=== PATIENT | male | born 1955 | race Caucasian/White ===

== ENCOUNTER 2017-11-23 12:28 | Inpatient (IN) | payer MEDICARE, MEDICAID ==
[~2017-11-23] VITALS: Ht 188 cm; Wt 100.4 kg
[~2017-11-23 12:28] MED LIST: ALBU18; AMIODARONE PO; FLOW VENT; FURO40TA PO; HYDROCHLORATHIAZIDE PO; INSLANTI SC; INSUINJ IJ; LISI10TA6 PO; METF-370 PO; METO25TA5 PO; NITR0.4S31; PLAVIX PO; SIMV40TA96 PO; [UNRECOGNIZED DRUG - CODE] PO
[2017-11-23 13:50] LABS: Basophils # (auto) 0.1 uL; Eosinophils # (auto) 0.2 uL; Hematocrit 24.4 % (41.0-53.0); Monocytes # (auto) 0.6 uL; Neutrophils # (auto) 3.1 uL; Nucleated Red Blood Cells % 0.3 %
[2017-11-23 13:52] LABS: Basophils % (auto) 1.1 % (0.0-2.0); Eosinophils % (auto) 3.3 % (0.0-7.0); Hemoglobin 7.1 g/dL (13.5-17.5); Lymphocytes % (auto) 20.7 % (10.0-50.0); Mean Corpuscular Hemoglobin 23.1 pg (28.0-32.0); Mean Corpuscular Hgb Conc. 29.3 g/dL (32.0-36.0); Mean Corpuscular Volume 78.9 fL (80.0-100.0); Neutrophils % (auto) 62.9 % (37.0-80.0); Platelet Count (auto) 179 10^3/uL (140-450); Red Cell Distribution Width 19.6 % (11.8-14.3); White Blood Cell 4.9 10^3/uL (4.4-10.8)
[2017-11-23 14:25] LABS: Calcium 8.1 mg/dL (8.5-10.1); Chloride 105 mmol/L (98-107); Potassium 4.6 mmol/L (3.5-5.1); Sodium 136 mmol/L (136-145)
[2017-11-23 14:28] LABS: Alanine Aminotransferase 23 U/L (16-61); Anion Gap 8 (5-15); Aspartate Aminotransferase 14 U/L (15-37); BUN/Creatinine Ratio 35.4; Blood Urea Nitrogen 28 mg/dL (7-18); Carbon Dioxide 23 mmol/L (21-32); GFR African American 128 mL/min; GFR Non-African American 106 mL/min; Glucose 174 mg/dL (74-106)
[2017-11-23 14:33] LABS: Alkaline Phosphatase 78 U/L (45-117); Bilirubin, Total 0.2 mg/dL (0.2-1.0); Total Protein 6.1 g/dL (6.4-8.2)
[2017-11-23] MEDS ORDERED: MORPHINE SULF INJ 2 MG/ML SYRINGE 1ML IV PRN (15:00)
[2017-11-23] MEDS ORDERED: HYDROcodone-ACET 10/325MG TAB PO PRN (15:00)
[2017-11-23] MEDS ORDERED: ZOLPIDEM TARTRATE 5 MG TAB PO PRN (15:00)
[2017-11-23] MEDS ORDERED: NITROGLYCERIN 0.4 MG SL TAB SL PRN ×2 (15:00)
[2017-11-23] MEDS ORDERED: ONDANSETRON HCL 4 MG/2 ML VIAL IV PRN (15:00)
[2017-11-23] MEDS ORDERED: MORPHINE SULFATE 10 MG/ML INJ 1ML SDV IV PRN (15:00)
[2017-11-23] MEDS ORDERED: PANTOPRAZOLE 40 MG TAB PO ONE (15:00)
[2017-11-23] MEDS ORDERED: LORazepam 0.5 MG TAB PO PRN (15:00)
[2017-11-23] MEDS ORDERED: MORPHINE SULFATE 10 MG/ML INJ 1ML SDV IV ONE (15:00)
[2017-11-23] MEDS ORDERED: ONDANSETRON HCL 4 MG/2 ML VIAL IV ONE (15:00)
[2017-11-23] MEDS ORDERED: ACETAMINOPHEN 325 MG TAB PO PRN (15:00)
[2017-11-23] MEDS: HYDROmorphone HCL 2 MG/ML VL IV PRN (17:25)
[2017-11-23] MEDS: Boost Glucose Control 8 Ounces PO SCH (18:06)
[2017-11-23 20:00] VITALS: BP 108/72
[2017-11-23] MEDS ORDERED: HYDROmorphone HCL 2 MG/ML VL IV ONE (21:45)
[2017-11-23 21:55] LABS: Hematocrit 21.1 % (41.0-53.0)
[2017-11-23] MEDS: ATORVASTATIN 20 MG TAB PO SCH ×2 (22:00→22:05)
[2017-11-23] MEDS: SODIUM CHLOR 0.9% PF (SALINE LOCK) 10ML VIAL IV SCH (22:03)
[2017-11-23] MEDS: CARVEDILOL 3.125 MG TAB PO SCH (22:04)
[2017-11-23 22:08] LABS: Hemoglobin 6.4 g/dL (13.5-17.5); INR 0.96 (0.9-1.15); Prothrombin Time 10.5 sec (9.37-12.3)
[2017-11-23 23:05] VITALS: BP 105/70
[2017-11-23 23:17] VITALS: BP_SYST 108; BP_SYST 137; BP_DIAS 72
[2017-11-23 23:35] VITALS: BP 136/68
[2017-11-24] VITALS (12 sets, daily range): BP systolic 103–137; BP diastolic 38–82
[2017-11-24] MEDS: traMADol HCL 50 MG TAB PO PRN (01:30)
[2017-11-24] MEDS: HYDROmorphone HCL 2 MG/ML VL IV PRN ×2 (02:18→06:22)
[2017-11-24] MEDS: SODIUM CHLOR 0.9% PF (SALINE LOCK) 10ML VIAL IV SCH ×3 (05:55→20:23)
[2017-11-24 06:23] LABS: Eosinophils # (auto) 0.2 uL; Neutrophils # (auto) 3.6 uL
[2017-11-24] MEDS: LEVOTHYROXINE SODIUM 100 MCG TAB PO SCH (06:25)
[2017-11-24 06:26] LABS: Basophils # (auto) 0.1 uL; Eosinophils % (auto) 3.5 % (0.0-7.0); Hematocrit 20.6 % (41.0-53.0); Lymphocytes # (auto) 0.7 uL; Lymphocytes % (auto) 13.9 % (10.0-50.0); Mean Corpuscular Hemoglobin 24.6 pg (28.0-32.0); Mean Corpuscular Hgb Conc. 30.8 g/dL (32.0-36.0); Mean Corpuscular Volume 79.7 fL (80.0-100.0); Monocytes # (auto) 0.8 uL; Monocytes % (auto) 14.3 % (0.0-12.0); Neutrophils % (auto) 67.3 % (37.0-80.0); Nucleated Red Blood Cells % 0.1 %; Platelet Count (auto) 121 10^3/uL (140-450); Red Blood Cells 2.58 10^6/uL (4.5-5.90); Red Cell Distribution Width 18.8 % (11.8-14.3); White Blood Cell 5.4 10^3/uL (4.4-10.8)
[2017-11-24 06:29] LABS: Hemoglobin 6.4 g/dL (13.5-17.5)
[2017-11-24 06:50] LABS: Albumin 2.7 g/dL (3.4-5.0); BUN/Creatinine Ratio 37.1; Bilirubin, Total 0.4 mg/dL (0.2-1.0); Calcium 7.3 mg/dL (8.5-10.1); Potassium 3.9 mmol/L (3.5-5.1); Total Protein 5.4 g/dL (6.4-8.2)
[2017-11-24] MEDS: Boost Glucose Control 8 Ounces PO SCH ×3 (08:00→18:00)
[2017-11-24] MEDS ORDERED: HYDROmorphone HCL 2 MG/ML VL IV ONE (08:45)
[2017-11-24] MEDS: HYDROcodone-ACET 10/325MG TAB PO PRN ×2 (09:43→20:38)
[2017-11-24] MEDS: MORPHINE SULFATE 10 MG/ML INJ 1ML SDV IV PRN ×5 (10:00→22:12)
[2017-11-24] MEDS ORDERED: PATIENTS OWN MEDICATION PO SCH (10:00)
[2017-11-24] MEDS: DOCUSATE SOD 100 MG CAP PO SCH (10:00)
[2017-11-24] MEDS: HCTZ 25 MG TAB PO SCH (10:01)
[2017-11-24] MEDS: AMIODARONE HCL 200 MG TAB PO SCH (10:01)
[2017-11-24] MEDS: PANTOPRAZOLE 40 MG TAB PO SCH (10:01)
[2017-11-24] MEDS: LISINOPRIL 10 MG TAB PO SCH (10:02)
[2017-11-24] MEDS: DULoxetine HCL 30 MG CAP PO SCH (10:02)
[2017-11-24] MEDS: CARVEDILOL 3.125 MG TAB PO SCH ×2 (10:03→20:24)
[2017-11-24] MEDS ORDERED: PANTOPRAZOLE 40 MG/10 ML VIAL IV ONE (19:45)
[2017-11-24] MEDS: PANTOPRAZOLE 80 MG in SODIUM CHL 0.9% 60 ML IV SCH (20:23)
[2017-11-24] MEDS: ATORVASTATIN 20 MG TAB PO SCH ×2 (20:39)
[2017-11-24 21:31] LABS: Basophils # (auto) 0 uL; Hemoglobin 7.8 g/dL (13.5-17.5); Mean Corpuscular Volume 81.8 fL (80.0-100.0); Monocytes # (auto) 0.7 uL; Monocytes % (auto) 17.6 % (0.0-12.0); Neutrophils # (auto) 1.9 uL; Platelet Count (auto) 116 10^3/uL (140-450); White Blood Cell 3.9 10^3/uL (4.4-10.8)
[2017-11-24 21:34] LABS: Basophils % (auto) 0.7 % (0.0-2.0); Eosinophils # (auto) 0.3 uL; Eosinophils % (auto) 6.7 % (0.0-7.0); Hematocrit 24.6 % (41.0-53.0); Lymphocytes % (auto) 25.5 % (10.0-50.0); Mean Corpuscular Hemoglobin 25.9 pg (28.0-32.0); Mean Corpuscular Hgb Conc. 31.6 g/dL (32.0-36.0); Neutrophils % (auto) 49.5 % (37.0-80.0); Nucleated Red Blood Cells % 0.4 %; Red Cell Distribution Width 18.8 % (11.8-14.3)
[2017-11-25] VITALS (9 sets, daily range): BP systolic 103–157; BP diastolic 38–87
[2017-11-25] MEDS: MORPHINE SULFATE 10 MG/ML INJ 1ML SDV IV PRN ×7 (01:15→23:36)
[2017-11-25] MEDS: CARISOPRODOL 350 MG TAB PO PRN ×2 (02:24→19:49)
[2017-11-25] MEDS: PANTOPRAZOLE 80 MG in SODIUM CHL 0.9% 60 ML IV SCH ×2 (04:16→15:45)
[2017-11-25 05:22] LABS: Basophils # (auto) 0 uL; Basophils % (auto) 0.7 % (0.0-2.0); Lymphocytes # (auto) 0.8 uL; Lymphocytes % (auto) 22.4 % (10.0-50.0); Monocytes # (auto) 0.6 uL; Neutrophils # (auto) 1.8 uL; White Blood Cell 3.4 10^3/uL (4.4-10.8)
[2017-11-25 05:25] LABS: Eosinophils # (auto) 0.2 uL; Eosinophils % (auto) 7.3 % (0.0-7.0); Hematocrit 25.4 % (41.0-53.0); Mean Corpuscular Hemoglobin 25.9 pg (28.0-32.0); Mean Corpuscular Hgb Conc. 31.5 g/dL (32.0-36.0); Mean Corpuscular Volume 82.4 fL (80.0-100.0); Monocytes % (auto) 17.2 % (0.0-12.0); Neutrophils % (auto) 52.4 % (37.0-80.0); Nucleated Red Blood Cells % 0.1 %; Platelet Count (auto) 114 10^3/uL (140-450); Red Blood Cells 3.08 10^6/uL (4.5-5.90); Red Cell Distribution Width 18.1 % (11.8-14.3)
[2017-11-25] MEDS: traMADol HCL 50 MG TAB PO PRN ×2 (06:11→19:50)
[2017-11-25] MEDS: LEVOTHYROXINE SODIUM 100 MCG TAB PO SCH (06:11)
[2017-11-25] MEDS: SODIUM CHLOR 0.9% PF (SALINE LOCK) 10ML VIAL IV SCH ×3 (06:13→22:40)
[2017-11-25] MEDS: Boost Glucose Control 8 Ounces PO SCH ×3 (08:00→18:00)
[2017-11-25] MEDS ORDERED: diphenhdrAMINE HCL 50 MG/1 ML VL ONE (08:35)
[2017-11-25] MEDS ORDERED: MIDAZOLAM HCL 5 MG/ML-1ML VIAL ONE (08:35)
[2017-11-25] MEDS ORDERED: SODIUM CHLORIDE LOCK 10 ML ONE (08:35)
[2017-11-25] MEDS ORDERED: LIDOCAINE VISCOUS 2% 15ML UD ONE (08:35)
[2017-11-25] MEDS ORDERED: fentaNYL CITRATE 100 MCG/2 ML VL ONE (08:35)
[2017-11-25] MEDS: PANTOPRAZOLE 40 MG TAB PO SCH (10:00)
[2017-11-25] MEDS: DULoxetine HCL 30 MG CAP PO SCH (10:00)
[2017-11-25] MEDS: AMIODARONE HCL 200 MG TAB PO SCH (10:00)
[2017-11-25] MEDS: HCTZ 25 MG TAB PO SCH (10:00)
[2017-11-25] MEDS: CARVEDILOL 3.125 MG TAB PO SCH ×2 (10:00→19:47)
[2017-11-25] MEDS: DOCUSATE SOD 100 MG CAP PO SCH (10:00)
[2017-11-25] MEDS: LISINOPRIL 10 MG TAB PO SCH (10:00)
[2017-11-25] MEDS: ISOSORBIDE MONONITRATE 60 MG TAB PO SCH (12:00)
[2017-11-25] MEDS: HYDROcodone-ACET 10/325MG TAB PO PRN (18:18)
[2017-11-25] MEDS: ATORVASTATIN 20 MG TAB PO SCH ×2 (19:48)
[2017-11-26] VITALS (11 sets, daily range): BP systolic 124–157; BP diastolic 65–80
[2017-11-26] MEDS: CARISOPRODOL 350 MG TAB PO PRN ×2 (04:23→20:15)
[2017-11-26] MEDS: MORPHINE SULFATE 10 MG/ML INJ 1ML SDV IV PRN (04:39)
[2017-11-26] MEDS: PANTOPRAZOLE 80 MG in SODIUM CHL 0.9% 60 ML IV SCH ×2 (05:04→11:55)
[2017-11-26] MEDS: traMADol HCL 50 MG TAB PO PRN (06:09)
[2017-11-26] MEDS: LEVOTHYROXINE SODIUM 100 MCG TAB PO SCH (06:09)
[2017-11-26] MEDS: SODIUM CHLOR 0.9% PF (SALINE LOCK) 10ML VIAL IV SCH ×3 (06:09→20:24)
[2017-11-26] MEDS ORDERED: MORPHINE SULF INJ 2 MG/ML SYRINGE 1ML ONE (07:49)
[2017-11-26] MEDS: MORPHINE SULF INJ 2 MG/ML SYRINGE 1ML IV PRN ×6 (07:50→22:58)
[2017-11-26] MEDS ORDERED: MORPHINE SULF INJ 2 MG/ML SYRINGE 1ML IV PRN (08:00)
[2017-11-26] MEDS: Boost Glucose Control 8 Ounces PO SCH ×3 (08:03→18:02)
[2017-11-26] MEDS: PANTOPRAZOLE 40 MG TAB PO SCH (09:17)
[2017-11-26] MEDS: DULoxetine HCL 30 MG CAP PO SCH (09:17)
[2017-11-26] MEDS: ISOSORBIDE MONONITRATE 60 MG TAB PO SCH (09:18)
[2017-11-26] MEDS: HCTZ 25 MG TAB PO SCH (09:19)
[2017-11-26] MEDS: DOCUSATE SOD 100 MG CAP PO SCH (09:20)
[2017-11-26] MEDS: AMIODARONE HCL 200 MG TAB PO SCH (09:20)
[2017-11-26] MEDS: LISINOPRIL 10 MG TAB PO SCH (09:21)
[2017-11-26] MEDS: CARVEDILOL 3.125 MG TAB PO SCH ×2 (09:21→20:13)
[2017-11-26 16:20] LABS: Hematocrit 28.2 % (41.0-53.0); Hemoglobin 8.8 g/dL (13.5-17.5); Mean Corpuscular Hgb Conc. 31.4 g/dL (32.0-36.0); Mean Corpuscular Volume 82.8 fL (80.0-100.0); Platelet Count (auto) 121 10^3/uL (140-450); Red Cell Distribution Width 18.3 % (11.8-14.3); White Blood Cell 3.2 10^3/uL (4.4-10.8)
[2017-11-26 16:23] LABS: Band Neutrophils % (manual) 0; Basophils % (manual) 0 (0.0-2.0); Blast Cells 0; Metamyelocytes % 0; Myelocytes % 0; Promyelocytes % 0; Reactive Lymphocytes 0
[2017-11-26] MEDS ORDERED: DEXTROSE (50%) 50ML SYRG IV PRN (17:15)
[2017-11-26 17:17] LABS: Eosinophils % (manual) 2 (0-7); Lymphocytes % (manual) 25 (10.0-50.0); Monocytes % (manual) 15 (0-12)
[2017-11-26] MEDS: SUCRALFATE 1 GM/10 ML ORAL SUSP GT SCH (20:14)
[2017-11-26] MEDS: ATORVASTATIN 20 MG TAB PO SCH (20:15)
[2017-11-26] MEDS: ACCU-CHEK COMFORT CURVE STRIP VI SCH (20:19)
[2017-11-26] MEDS: InsuLIN REG 1unit/0.01ml Soln (100units/ml) SC SCH (20:23)
[2017-11-27] MEDS: traMADol HCL 50 MG TAB PO PRN (01:50)
[2017-11-27] MEDS: MORPHINE SULF INJ 2 MG/ML SYRINGE 1ML IV PRN ×5 (02:06→15:31)
[2017-11-27] MEDS: SUCRALFATE 1 GM/10 ML ORAL SUSP GT SCH ×3 (05:34→17:00)
[2017-11-27] MEDS: SODIUM CHLOR 0.9% PF (SALINE LOCK) 10ML VIAL IV SCH ×2 (05:36→14:00)
[2017-11-27] MEDS: PANTOPRAZOLE 80 MG in SODIUM CHL 0.9% 60 ML IV SCH ×3 (05:36→17:45)
[2017-11-27 05:41] VITALS: BP 154/74
[2017-11-27] MEDS: CARISOPRODOL 350 MG TAB PO PRN (06:24)
[2017-11-27] MEDS: LEVOTHYROXINE SODIUM 100 MCG TAB PO SCH (06:24)
[2017-11-27] MEDS: InsuLIN REG 1unit/0.01ml Soln (100units/ml) SC SCH ×3 (06:52→17:00)
[2017-11-27] MEDS: ACCU-CHEK COMFORT CURVE STRIP VI SCH ×3 (06:53→17:00)
[2017-11-27 06:56] LABS: Hematocrit 29.2 % (41.0-53.0); Hemoglobin 9.6 g/dL (13.5-17.5); Mean Corpuscular Hemoglobin 27.5 pg (28.0-32.0); Mean Corpuscular Hgb Conc. 32.7 g/dL (32.0-36.0); Platelet Count (auto) 109 10^3/uL (140-450); Red Blood Cells 3.48 10^6/uL (4.5-5.90); Red Cell Distribution Width 18.7 % (11.8-14.3); White Blood Cell 3.1 10^3/uL (4.4-10.8)
[2017-11-27 07:05] LABS: Band Neutrophils % (manual) 0; Basophils % (manual) 0 (0.0-2.0); Blast Cells 0; Metamyelocytes % 0; Myelocytes % 0; Promyelocytes % 0; Reactive Lymphocytes 0
[2017-11-27 07:28] LABS: Albumin 2.9 g/dL (3.4-5.0); Bilirubin, Direct 0.3 mg/dL (0-0.2); Bilirubin, Total 0.6 mg/dL (0.2-1.0); Total Protein 5.9 g/dL (6.4-8.2)
[2017-11-27 07:43] LABS: Monocytes % (manual) 17 (0-12)
[2017-11-27 07:44] LABS: Eosinophils % (manual) 9 (0-7); Lymphocytes % (manual) 23 (10.0-50.0)
[2017-11-27 08:00] VITALS: BP 134/72
[2017-11-27] MEDS: Boost Glucose Control 8 Ounces PO SCH ×2 (08:00→12:00)
[2017-11-27 08:51] VITALS: BP 134/72
[2017-11-27] MEDS: DULoxetine HCL 30 MG CAP PO SCH (10:19)
[2017-11-27] MEDS: DOCUSATE SOD 100 MG CAP PO SCH (10:19)
[2017-11-27] MEDS: HCTZ 25 MG TAB PO SCH (10:20)
[2017-11-27] MEDS: ISOSORBIDE MONONITRATE 60 MG TAB PO SCH (10:20)
[2017-11-27] MEDS: LISINOPRIL 10 MG TAB PO SCH (10:21)
[2017-11-27] MEDS: AMIODARONE HCL 200 MG TAB PO SCH (10:21)
[2017-11-27] MEDS: CARVEDILOL 3.125 MG TAB PO SCH (10:22)
[2017-11-27 13:00] VITALS: BP 122/66
[2017-11-27] MEDS ORDERED: ISO60SRT PO (15:32)
[2017-11-27] MEDS ORDERED: PANT40TA2 PO (15:32)
[2017-11-27 16:40] VITALS: BP 122/66
[2017-11-27 16:46] VITALS: BP 134/68
[2017-11-29 10:57] LABS: Hepatitis B Surface Antibody Negative
[2017-11-29 11:07] LABS: Hepatitis B Surface Antigen Negative (Negative)
[2017-11-29 15:54] LABS: Hepatitis B Core IgM Negative
[2017-11-29 16:12] LABS: Hepatitis B Core Total AB Positive
== END 2017-11-27 18:40 | disposition home or self-care (01) | DRG 393 ==
LOC: EDBD 12:28 → ER 12:28 → TELE 12:29 → TELE-WESTW 16:30
PROVIDERS: ADMIT Internal Medicine; ATTEND Nurse Practitioner Acute Care
PROC: 30233N1 Transfusion of Nonautologous Red Blood Cells into Peripheral Vein, Percutaneous Approach (ICD-10-PCS; principal; 2017-11-23)
PROC: 0DB68ZX Excision of Stomach, Via Natural or Artificial Opening Endoscopic, Diagnostic (ICD-10-PCS; 2017-11-25)
PROC: 0DB88ZX Excision of Small Intestine, Via Natural or Artificial Opening Endoscopic, Diagnostic (ICD-10-PCS; 2017-11-25)
DX: K91.89 Other postprocedural complications and disorders of digestive system (principal); K28.4 Chronic or unspecified gastrojejunal ulcer with hemorrhage; D68.69 Other thrombophilia; D69.6 Thrombocytopenia, unspecified; E44.0 Moderate protein-calorie malnutrition; E83.51 Hypocalcemia; I11.0 Hypertensive heart disease with heart failure; I50.42 Chronic combined systolic (congestive) and diastolic (congestive) heart failure; I48.0 Paroxysmal atrial fibrillation; I48.92 Unspecified atrial flutter; I25.118 Atherosclerotic heart disease of native coronary artery with other forms of angina pectoris; J44.9 Chronic obstructive pulmonary disease, unspecified; E11.9 Type 2 diabetes mellitus without complications; D50.0 Iron deficiency anemia secondary to blood loss (chronic); E03.9 Hypothyroidism, unspecified; M54.5 Low back pain; E78.5 Hyperlipidemia, unspecified; G89.29 Other chronic pain; Z80.1 Family history of malignant neoplasm of trachea, bronchus and lung; Z83.3 Family history of diabetes mellitus; Z86.711 Personal history of pulmonary embolism; Z95.5 Presence of coronary angioplasty implant and graft; Z79.899 Other long term (current) drug therapy; I25.2 Old myocardial infarction; Z86.79 Personal history of other diseases of the circulatory system; Z87.11 Personal history of peptic ulcer disease; Z87.891 Personal history of nicotine dependence; Z95.810 Presence of automatic (implantable) cardiac defibrillator; Z98.84 Bariatric surgery status; Z98.49 Cataract extraction status, unspecified eye; Z88.0 Allergy status to penicillin; Z88.8 Allergy status to other drugs, medicaments and biological substances; Z68.28 Body mass index [BMI] 28.0-28.9, adult
CPT/HCPCS: 36415; 36430; 43239; 71046; 80053; 80061; 80076; 82962; 83036; 83605; 83615; 83735; 83880; 84436; 84443; 84484; 85007; 85014; 85018; 85025; 85027; 85045; 85610; 85652; 86038; 86703; 86704; 86705; 86706; 86803; 86850; 86880; 86900; 86901; 86920; 87340; 93005; 93306; C9113; J1815; J2250; J2405

== ENCOUNTER 2018-08-10 19:26 | Inpatient (IN) | payer MEDICARE, MEDICAID ==
[~2018-08-10] VITALS: Ht 193 cm; Wt 94.3 kg
[~2018-08-10 19:26] MED LIST changes: +ISO60SRT PO; +PANT40TA2 PO
[2018-08-10] MEDS ORDERED: MORPHINE SULFATE 4 MG/ML SYR/VIAL IV ONE (21:15)
[2018-08-10] MEDS ORDERED: ONDANSETRON HCL 4 MG/2 ML VIAL IV ONE (21:15)
[2018-08-10] MEDS ORDERED: IOHEXOL 350 MG/ML 100ML IJ ONE (21:18)
[2018-08-10 21:32] LABS: Basophils # (auto) 0 uL; Basophils % (auto) 0.8 % (0.0-2.0); Eosinophils # (auto) 0.3 uL; Eosinophils % (auto) 6.2 % (0.0-7.0); Hematocrit 26.8 % (41.0-53.0); Hemoglobin 8.4 g/dL (13.5-17.5); Lymphocytes # (auto) 1.2 uL; Lymphocytes % (auto) 27.2 % (10.0-50.0); Mean Corpuscular Hemoglobin 20.9 pg (28.0-32.0); Mean Corpuscular Hgb Conc. 31.3 g/dL (32.0-36.0); Mean Corpuscular Volume 66.9 fL (80.0-100.0); Monocytes # (auto) 0.6 uL; Monocytes % (auto) 12.3 % (0.0-12.0); Neutrophils # (auto) 2.4 uL; Neutrophils % (auto) 53.5 % (37.0-80.0); Nucleated Red Blood Cells % 0.1 %; Platelet Count (auto) 134 10^3/uL (140-450); Red Cell Distribution Width 17.6 % (11.8-14.3); White Blood Cell 4.6 10^3/uL (4.4-10.8)
[2018-08-10 21:47] LABS: Albumin 2.6 g/dL (3.4-5.0); BUN/Creatinine Ratio 15.5; Calcium 7.4 mg/dL (8.5-10.1); Magnesium 2.2 mg/dL (1.6-2.6); Potassium 4.2 mmol/L (3.5-5.1)
[2018-08-10 21:49] LABS: INR 0.89 (0.9-1.15); Partial Thromboplastin Time 25.7 sec (23.78-33.04); Prothrombin Time 9.6 sec (9.27-12.13)
[2018-08-10 21:50] LABS: Bilirubin, Total 0.2 mg/dL (0.2-1.0); Total Protein 5.9 g/dL (6.4-8.2)
[2018-08-11] MEDS ORDERED: ONDANSETRON HCL 4 MG/2 ML VIAL IV PRN (03:45)
[2018-08-11] MEDS ORDERED: HYDROcodone-ACET 5/325MG TAB PO PRN (03:45)
[2018-08-11] MEDS ORDERED: DEXTROSE (50%) 50ML SYRG IV PRN (03:45)
[2018-08-11] MEDS ORDERED: NITROGLYCERIN 0.4 MG SL TAB SL PRN (03:45)
[2018-08-11] MEDS ORDERED: ACETAMINOPHEN 325 MG TAB PO PRN (03:45)
[2018-08-11] MEDS ORDERED: MORPHINE SULFATE 4 MG/ML SYR/VIAL IV PRN (03:45)
[2018-08-11] MEDS ORDERED: MORPHINE SULFATE 4 MG/ML SYR/VIAL IV ONE ×2 (04:00)
[2018-08-11 05:05] VITALS: BP 198/98
[2018-08-11] MEDS: ACCU-CHEK COMFORT CURVE STRIP VI SCH ×4 (05:41→23:49)
[2018-08-11] MEDS: InsuLIN REG 1unit/0.01ml Soln (100units/ml) SC SCH ×4 (05:41→23:50)
[2018-08-11 05:55] VITALS: BP 198/98
[2018-08-11] MEDS ORDERED: HYDROmorphone HCL 2 MG TAB PO ONE (06:00)
[2018-08-11] MEDS ORDERED: cloNIDine HCL 0.1 MG TAB PO PRN (06:00)
[2018-08-11] MEDS ORDERED: FAMO-12 PO (06:02)
[2018-08-11] MEDS ORDERED: CLOP75TA28 PO (06:02)
[2018-08-11] MEDS ORDERED: HYDR25TA4 PO (06:02)
[2018-08-11] MEDS ORDERED: AMIO200T33 PO (06:02)
[2018-08-11] MEDS ORDERED: INSREG3 SUBCUT (06:02)
[2018-08-11] MEDS ORDERED: DULO60CA PO (06:02)
[2018-08-11] MEDS ORDERED: HYDR8TAB46 PO (06:02)
[2018-08-11] MEDS ORDERED: ROSU20TA14 PO (06:02)
[2018-08-11] MEDS ORDERED: LEVO100T8 PO (06:02)
[2018-08-11] MEDS ORDERED: CANA300T OR (06:02)
[2018-08-11] MEDS ORDERED: CARI-277 PO (06:02)
[2018-08-11] MEDS ORDERED: HYDR-531 PO (06:02)
[2018-08-11] MEDS ORDERED: TRAM50TA2 PO (06:02)
[2018-08-11] MEDS ORDERED: LISI10TA6 PO (06:02)
[2018-08-11] MEDS ORDERED: CAR3125T PO (06:02)
[2018-08-11] MEDS ORDERED: INFLUENZA QUAD 2018-2019 0.5 ML SYRG IM ONE (06:30)
[2018-08-11] MEDS: HYDROmorphone HCL 2 MG/ML VL IV PRN ×6 (08:02→22:10)
[2018-08-11 09:18] VITALS: BP 169/89
[2018-08-11] MEDS: LISINOPRIL 10 MG TAB PO SCH (09:24)
[2018-08-11] MEDS: AMIODARONE HCL 200 MG TAB PO SCH ×2 (09:26→22:18)
[2018-08-11] MEDS: ISOSORBIDE MONONITRATE 60 MG TAB PO SCH (09:26)
[2018-08-11] MEDS: FUROSEMIDE 40 MG TAB PO SCH (09:27)
[2018-08-11] MEDS: FERROUS SULFATE 325 MG TAB PO SCH ×2 (09:28→18:00)
[2018-08-11] MEDS: PANTOPRAZOLE 40 MG TAB PO SCH (09:29)
[2018-08-11] MEDS ORDERED: CLOPIDOGREL BISULFATE 75 MG TAB PO SCH (10:00)
[2018-08-11] MEDS: HYDROcodone-ACET 5/325MG TAB PO PRN ×3 (10:00→20:40)
[2018-08-11] MEDS ORDERED: ASPirin 81 mg TAB PO SCH (10:00)
[2018-08-11 13:04] VITALS: BP 158/83
[2018-08-11 17:00] VITALS: BP 144/71
[2018-08-11 21:47] VITALS: BP 150/79
[2018-08-11 22:06] LABS: Basophils # (auto) 0.1 uL; Lymphocytes # (auto) 1.2 uL; Monocytes # (auto) 0.6 uL; Nucleated Red Blood Cells % 0.1 %; White Blood Cell 5.3 10^3/uL (4.4-10.8)
[2018-08-11 22:11] LABS: Neutrophils % (auto) 61.3 % (37.0-80.0)
[2018-08-11 22:12] LABS: Basophils % (auto) 1.3 % (0.0-2.0); Eosinophils % (auto) 4.5 % (0.0-7.0); Lymphocytes % (auto) 21.7 % (10.0-50.0); Monocytes % (auto) 11.2 % (0.0-12.0); Neutrophils # (auto) 3.3 uL
[2018-08-11 22:13] LABS: Eosinophils # (auto) 0.2 uL; Red Blood Cells 4.27 10^6/uL (4.5-5.90)
[2018-08-11 22:14] LABS: Hematocrit 28.7 % (41.0-53.0); Hemoglobin 8.7 g/dL (13.5-17.5); Mean Corpuscular Hemoglobin 20.3 pg (28.0-32.0); Mean Corpuscular Hgb Conc. 30.2 g/dL (32.0-36.0); Mean Corpuscular Volume 67.3 fL (80.0-100.0); Platelet Count (auto) 156 10^3/uL (140-450); Red Cell Distribution Width 18.4 % (11.8-14.3)
[2018-08-11] MEDS: ATORVASTATIN 20 MG TAB PO SCH (22:19)
[2018-08-11 22:26] LABS: Alanine Aminotransferase 20 U/L (16-61); Albumin 2.8 g/dL (3.4-5.0); Anion Gap 7 (5-15); Aspartate Aminotransferase 12 U/L (15-37); BUN/Creatinine Ratio 20.4; Blood Urea Nitrogen 21 mg/dL (7-18); Calcium 7.6 mg/dL (8.5-10.1); Carbon Dioxide 25 mmol/L (21-32); Chloride 107 mmol/L (98-107); GFR African American 94 mL/min; GFR Non-African American 78 mL/min; Glucose 172 mg/dL (74-106); Potassium 4.2 mmol/L (3.5-5.1); Sodium 139 mmol/L (136-145)
[2018-08-11 22:30] LABS: Alkaline Phosphatase 139 U/L (45-117); Bilirubin, Total 0.3 mg/dL (0.2-1.0); Total Protein 6.3 g/dL (6.4-8.2)
[2018-08-11] MEDS: TEMAZEPAM 15 MG CAP PO PRN (23:49)
[2018-08-12] MEDS: HYDROmorphone HCL 2 MG/ML VL IV PRN ×8 (01:12→23:11)
[2018-08-12 05:33] VITALS: BP 146/78
[2018-08-12] MEDS: ACCU-CHEK COMFORT CURVE STRIP VI SCH ×4 (06:09→23:35)
[2018-08-12] MEDS: InsuLIN REG 1unit/0.01ml Soln (100units/ml) SC SCH ×4 (06:17→23:35)
[2018-08-12 06:35] LABS: Eosinophils # (auto) 0.3 uL; Eosinophils % (auto) 8.4 % (0.0-7.0); Hemoglobin 8.3 g/dL (13.5-17.5); Lymphocytes # (auto) 0.8 uL; Monocytes # (auto) 0.5 uL; Neutrophils # (auto) 2.4 uL; White Blood Cell 4.1 10^3/uL (4.4-10.8)
[2018-08-12 06:37] LABS: Basophils # (auto) 0.1 uL; Basophils % (auto) 1.4 % (0.0-2.0); Lymphocytes % (auto) 18.5 % (10.0-50.0); Mean Corpuscular Hemoglobin 20.5 pg (28.0-32.0); Mean Corpuscular Hgb Conc. 30.8 g/dL (32.0-36.0); Mean Corpuscular Volume 66.6 fL (80.0-100.0); Monocytes % (auto) 12.4 % (0.0-12.0); Neutrophils % (auto) 59.3 % (37.0-80.0); Nucleated Red Blood Cells % 0.1 %; Platelet Count (auto) 144 10^3/uL (140-450); Red Blood Cells 4.05 10^6/uL (4.5-5.90); Red Cell Distribution Width 18.2 % (11.8-14.3)
[2018-08-12 06:50] LABS: Albumin 2.6 g/dL (3.4-5.0); BUN/Creatinine Ratio 23.7
[2018-08-12 06:53] LABS: Bilirubin, Total 0.4 mg/dL (0.2-1.0)
[2018-08-12] MEDS: PANTOPRAZOLE 40 MG TAB PO SCH (07:33)
[2018-08-12 08:00] VITALS: BP 158/79
[2018-08-12 08:45] VITALS: BP 158/79
[2018-08-12] MEDS: ISOSORBIDE MONONITRATE 60 MG TAB PO SCH (09:14)
[2018-08-12] MEDS: AMIODARONE HCL 200 MG TAB PO SCH ×2 (09:15→21:41)
[2018-08-12] MEDS: FERROUS SULFATE 325 MG TAB PO SCH ×2 (09:15→17:08)
[2018-08-12] MEDS: LISINOPRIL 10 MG TAB PO SCH (09:15)
[2018-08-12] MEDS: HYDROcodone-ACET 5/325MG TAB PO PRN ×3 (09:16→19:09)
[2018-08-12] MEDS: FUROSEMIDE 40 MG TAB PO SCH (09:18)
[2018-08-12] MEDS ORDERED: ASPirin 81 mg TAB PO SCH (10:00)
[2018-08-12 12:29] VITALS: BP 108/62
[2018-08-12 16:55] VITALS: BP 141/66
[2018-08-12] MEDS: TEMAZEPAM 15 MG CAP PO PRN (21:41)
[2018-08-12] MEDS: ATORVASTATIN 20 MG TAB PO SCH (21:41)
[2018-08-12 21:55] VITALS: BP 105/58
[2018-08-13] MEDS: HYDROmorphone HCL 2 MG/ML VL IV PRN ×4 (02:53→12:25)
[2018-08-13 05:31] VITALS: BP 133/71
[2018-08-13] MEDS: InsuLIN REG 1unit/0.01ml Soln (100units/ml) SC SCH ×2 (05:48→12:17)
[2018-08-13] MEDS: ACCU-CHEK COMFORT CURVE STRIP VI SCH ×2 (05:48→12:17)
[2018-08-13] MEDS: PANTOPRAZOLE 40 MG TAB PO SCH (07:31)
[2018-08-13] MEDS: HYDROcodone-ACET 5/325MG TAB PO PRN (07:31)
[2018-08-13 08:00] VITALS: BP 158/79
[2018-08-13 09:00] VITALS: BP 130/71
[2018-08-13] MEDS: AMIODARONE HCL 200 MG TAB PO SCH (09:00)
[2018-08-13] MEDS: FERROUS SULFATE 325 MG TAB PO SCH ×2 (09:00→12:00)
[2018-08-13] MEDS: ISOSORBIDE MONONITRATE 60 MG TAB PO SCH (09:01)
[2018-08-13] MEDS: LISINOPRIL 10 MG TAB PO SCH (09:01)
[2018-08-13] MEDS: FUROSEMIDE 40 MG TAB PO SCH (09:03)
[2018-08-13] MEDS ORDERED: SODIUM FERR GLUC 62.5MG/5ML 125 MG in SODIUM CHL 0.9% 100 ML IV ONE (12:30)
[2018-08-13 13:00] VITALS: BP 120/69
[2018-08-13] MEDS ORDERED: PANT40T PO (13:44)
[2018-08-13] MEDS ORDERED: EPOETIN ALFA 10,000 UNIT/1 ML VIAL SC ONE (14:30)
[2018-08-13 14:38] VITALS: BP 130/71
[2018-08-14] MEDS ORDERED: LEVOTHYROXINE SODIUM 100 MCG TAB PO SCH (07:00)
[2018-08-14] MEDS ORDERED: AMIODARONE HCL 200 MG TAB PO SCH (10:00)
== END 2018-08-13 15:15 | disposition home health service (06) | DRG 811 ==
LOC: EDBD 19:26 → ER 19:26 → TELE 19:27 → TELE-EAST 08-11 05:09
PROVIDERS: ADMIT Nurse Practitioner; ATTEND Internal Medicine Pulmonary Disease
DX: D50.9 Iron deficiency anemia, unspecified (principal); E43 Unspecified severe protein-calorie malnutrition; J44.1 Chronic obstructive pulmonary disease with (acute) exacerbation; Z95.5 Presence of coronary angioplasty implant and graft; I25.10 Atherosclerotic heart disease of native coronary artery without angina pectoris; E11.9 Type 2 diabetes mellitus without complications; E03.9 Hypothyroidism, unspecified; G89.29 Other chronic pain; I11.0 Hypertensive heart disease with heart failure; I50.9 Heart failure, unspecified; I48.91 Unspecified atrial fibrillation; E66.01 Morbid (severe) obesity due to excess calories; I25.2 Old myocardial infarction; Z82.49 Family history of ischemic heart disease and other diseases of the circulatory system; Z68.25 Body mass index [BMI] 25.0-25.9, adult; Z83.3 Family history of diabetes mellitus; Z86.711 Personal history of pulmonary embolism; Z87.891 Personal history of nicotine dependence; Z90.49 Acquired absence of other specified parts of digestive tract; Z95.810 Presence of automatic (implantable) cardiac defibrillator; Z98.84 Bariatric surgery status; Z88.1 Allergy status to other antibiotic agents; Z80.9 Family history of malignant neoplasm, unspecified
CPT/HCPCS: 36415; 71045; 71275; 80053; 82728; 82962; 83540; 83550; 83735; 83880; 84484; 85025; 85379; 85610; 85730; 93005; 96374; 96375; 96376; A6257; J0885; J1642; J1815; J2405

== ENCOUNTER → 2018-08-17 | Outpatient (CLI) | payer MEDICARE, MEDICAID ==
[~2018-08-17] MED LIST changes: -ALBU18; +AMIO200T33 PO; -AMIODARONE PO; +CANA300T OR; +CAR3125T PO; +CARI-277 PO; +DULO60CA PO; -FLOW VENT; -FURO40TA PO; +HYDR-531 PO; +HYDR25TA4 PO; +HYDR8TAB46 PO; -HYDROCHLORATHIAZIDE PO; -INSLANTI SC; +INSREG3 SUBCUT; -INSUINJ IJ; -ISO60SRT PO; +LEVO100T8 PO; -METF-370 PO; -METO25TA5 PO; -NITR0.4S31; +PANT40T PO; -PANT40TA2 PO; -PLAVIX PO; +ROSU20TA14 PO; -SIMV40TA96 PO; +TRAM50TA2 PO; -[UNRECOGNIZED DRUG - CODE] PO
[2018-08-17 11:28] LABS: Basophils # (auto) 0 uL; Eosinophils # (auto) 0.2 uL; Lymphocytes # (auto) 1.2 uL; Mean Corpuscular Hemoglobin 21.3 pg (28.0-32.0); Monocytes # (auto) 0.5 uL; White Blood Cell 4.3 10^3/uL (4.4-10.8)
[2018-08-17 11:32] LABS: Basophils % (auto) 0.9 % (0.0-2.0); Eosinophils % (auto) 5.3 % (0.0-7.0); Hematocrit 30.6 % (41.0-53.0); Hemoglobin 9.2 g/dL (13.5-17.5); Lymphocytes % (auto) 27.9 % (10.0-50.0); Mean Corpuscular Hgb Conc. 30.1 g/dL (32.0-36.0); Mean Corpuscular Volume 70.6 fL (80.0-100.0); Monocytes % (auto) 11.5 % (0.0-12.0); Neutrophils # (auto) 2.3 uL; Neutrophils % (auto) 54.4 % (37.0-80.0); Nucleated Red Blood Cells % 0.1 %; Platelet Count (auto) 194 10^3/uL (140-450); Red Blood Cells 4.33 10^6/uL (4.5-5.90); Red Cell Distribution Width 19.3 % (11.8-14.3)
[2018-08-17 11:52] LABS: Reticulocyte % (auto) 5.49 % (0.5-1.5)
[2018-08-17 12:09] LABS: Albumin 3.3 g/dL (3.4-5.0); Calcium 8.2 mg/dL (8.5-10.1); Potassium 3.9 mmol/L (3.5-5.1)
[2018-08-17 12:11] LABS: BUN/Creatinine Ratio 15.9; Bilirubin, Total 0.5 mg/dL (0.2-1.0); Total Protein 7.3 g/dL (6.4-8.2)
[2018-08-17 12:17] LABS: Ferritin 54.3 ng/mL (10-322); Free T4 (Free Thyroxine) 0.87 ng/dL (0.89-1.76)
[2018-08-17 12:18] LABS: Folate (Folic Acid) 15.9 ng/mL (5.38-24)
== END | disposition home or self-care (01) ==
LOC: LAB 10:07
PROVIDERS: ATTEND Internal Medicine
DX: D64.9 Anemia, unspecified (principal)
CPT/HCPCS: 36415; 80053; 82607; 82668; 82728; 82746; 83010; 83540; 83615; 84436; 84439; 84443; 85025; 85045; 85652; 86038; 86880; 86885

== ENCOUNTER → 2018-10-05 | Outpatient (CLI) | payer MEDICARE, MEDICAID ==
[2018-10-05 09:24] LABS: Basophils # (auto) 0 uL; Eosinophils # (auto) 0.2 uL; Eosinophils % (auto) 4.3 % (0.0-7.0); Lymphocytes # (auto) 0.6 uL; Red Blood Cells 4.58 10^6/uL (4.5-5.90); White Blood Cell 4.2 10^3/uL (4.4-10.8)
[2018-10-05 09:27] LABS: Basophils % (auto) 0.7 % (0.0-2.0); Hematocrit 36.1 % (41.0-53.0); Hemoglobin 11.5 g/dL (13.5-17.5); Lymphocytes % (auto) 15.3 % (10.0-50.0); Mean Corpuscular Hemoglobin 25.1 pg (28.0-32.0); Mean Corpuscular Hgb Conc. 31.8 g/dL (32.0-36.0); Mean Corpuscular Volume 78.8 fL (80.0-100.0); Monocytes # (auto) 0.4 uL; Monocytes % (auto) 8.4 % (0.0-12.0); Neutrophils % (auto) 71.3 % (37.0-80.0); Platelet Count (auto) 109 10^3/uL (140-450)
[2018-10-05 09:35] LABS: Red Cell Distribution Width 22.7 % (11.8-14.3)
== END | disposition home or self-care (01) ==
LOC: LAB 09:15
PROVIDERS: ATTEND Internal Medicine
DX: D50.9 Iron deficiency anemia, unspecified (principal)
CPT/HCPCS: 36415; 83540; 83550; 85025

== ENCOUNTER → 2018-12-05 | Outpatient (CLI) | payer MEDICARE, MEDICAID ==
[2018-12-05 10:50] LABS: Basophils # (auto) 0 uL; Basophils % (auto) 0.8 % (0.0-2.0); Eosinophils # (auto) 0.1 uL; Eosinophils % (auto) 2.8 % (0.0-7.0); Hematocrit 40.1 % (41.0-53.0); Hemoglobin 13.4 g/dL (13.5-17.5); Lymphocytes # (auto) 1.2 uL; Lymphocytes % (auto) 21.9 % (10.0-50.0); Mean Corpuscular Hemoglobin 27.6 pg (28.0-32.0); Mean Corpuscular Hgb Conc. 33.3 g/dL (32.0-36.0); Mean Corpuscular Volume 82.7 fL (80.0-100.0); Monocytes # (auto) 0.4 uL; Monocytes % (auto) 7.1 % (0.0-12.0); Neutrophils # (auto) 3.5 uL; Neutrophils % (auto) 67.4 % (37.0-80.0); Platelet Count (auto) 109 10^3/uL (140-450); Red Blood Cells 4.85 10^6/uL (4.5-5.90); Red Cell Distribution Width 16.8 % (11.8-14.3); White Blood Cell 5.3 10^3/uL (4.4-10.8)
[2018-12-05 11:30] LABS: % Iron Saturation 16.6 % (20-55)
== END | disposition home or self-care (01) ==
LOC: LAB 10:01
PROVIDERS: ATTEND Internal Medicine
DX: D50.9 Iron deficiency anemia, unspecified (principal)
CPT/HCPCS: 36415; 83540; 83550; 85025

== ENCOUNTER → 2019-03-22 | Outpatient (CLI) | payer MEDICARE, MEDICAID ==
[~2019-03-22] MED LIST changes: +ASPI81CH43 PO; +CLOP75TA28 PO; +FAMO-12 PO; +RIVA20TA PO
[2019-03-22 08:40] LABS: Basophils # (auto) 0 uL; Basophils % (auto) 0.7 % (0.0-2.0); Eosinophils # (auto) 0.2 uL; Eosinophils % (auto) 3.2 % (0.0-7.0); Hematocrit 38.8 % (41.0-53.0); Hemoglobin 12.7 g/dL (13.5-17.5); Lymphocytes % (auto) 21.7 % (10.0-50.0); Mean Corpuscular Hemoglobin 28.2 pg (28.0-32.0); Mean Corpuscular Hgb Conc. 32.6 g/dL (32.0-36.0); Mean Corpuscular Volume 86.4 fL (80.0-100.0); Monocytes # (auto) 0.3 uL; Monocytes % (auto) 7.4 % (0.0-12.0); Neutrophils # (auto) 3.2 uL; Platelet Count (auto) 114 10^3/uL (140-450); Red Blood Cells 4.49 10^6/uL (4.5-5.90); Red Cell Distribution Width 14.7 % (11.8-14.3); White Blood Cell 4.7 10^3/uL (4.4-10.8)
== END | disposition home or self-care (01) ==
LOC: LAB 08:15
PROVIDERS: ATTEND Internal Medicine
DX: D50.9 Iron deficiency anemia, unspecified (principal)
CPT/HCPCS: 36415; 83540; 83550; 85025

== ENCOUNTER → 2019-06-19 | Outpatient (CLI) | payer MEDICARE, MEDICAID ==
[2019-06-19 11:14] LABS: Basophils # (auto) 0 uL; Basophils % (auto) 0.9 % (0.0-2.0); Eosinophils # (auto) 0.2 uL; Eosinophils % (auto) 3.9 % (0.0-7.0); Hematocrit 41.3 % (41.0-53.0); Hemoglobin 14.1 g/dL (13.5-17.5); Lymphocytes # (auto) 1.2 uL; Lymphocytes % (auto) 24.1 % (10.0-50.0); Mean Corpuscular Hemoglobin 29.5 pg (28.0-32.0); Mean Corpuscular Volume 86.8 fL (80.0-100.0); Monocytes # (auto) 0.5 uL; Monocytes % (auto) 9.3 % (0.0-12.0); Neutrophils # (auto) 3.1 uL; Neutrophils % (auto) 61.8 % (37.0-80.0); Nucleated Red Blood Cells % 0.1 %; Platelet Count (auto) 120 10^3/uL (140-450); Red Blood Cells 4.76 10^6/uL (4.5-5.90)
[2019-06-19 11:46] LABS: Ferritin 50.4 ng/mL (10-322); Folate (Folic Acid) > 24.00 ng/mL (5.38-24)
[2019-06-19 12:52] LABS: Albumin 3.4 g/dL (3.4-5.0); BUN/Creatinine Ratio 15.2; Bilirubin, Total 0.7 mg/dL (0.2-1.0); Calcium 8.1 mg/dL (8.5-10.1); Total Protein 6.9 g/dL (6.4-8.2)
== END | disposition home or self-care (01) ==
LOC: LAB 10:47
PROVIDERS: ATTEND Internal Medicine
DX: D50.9 Iron deficiency anemia, unspecified (principal)
CPT/HCPCS: 36415; 80053; 82607; 82728; 82746; 83540; 83550; 85025

== ENCOUNTER → 2019-09-08 | Outpatient (CLI) | payer MEDICARE, MEDICAID ==
[2019-09-08 14:30] LABS: Basophils # (auto) 0 uL; Basophils % (auto) 0.7 % (0.0-2.0); Eosinophils # (auto) 0.3 uL; Eosinophils % (auto) 4.2 % (0.0-7.0); Hematocrit 36.7 % (41.0-53.0); Hemoglobin 12.1 g/dL (13.5-17.5); Lymphocytes % (auto) 14.9 % (10.0-50.0); Mean Corpuscular Hemoglobin 29.9 pg (28.0-32.0); Mean Corpuscular Hgb Conc. 32.9 g/dL (32.0-36.0); Mean Corpuscular Volume 91.1 fL (80.0-100.0); Monocytes # (auto) 0.8 uL; Monocytes % (auto) 11.5 % (0.0-12.0); Neutrophils # (auto) 4.7 uL; Neutrophils % (auto) 68.7 % (37.0-80.0); Nucleated Red Blood Cells % 0.2 %; Platelet Count (auto) 139 10^3/uL (140-450); Red Blood Cells 4.03 10^6/uL (4.5-5.90); Red Cell Distribution Width 14.9 % (11.8-14.3); White Blood Cell 6.9 10^3/uL (4.4-10.8)
[2019-09-08 14:38] LABS: Albumin 2.5 g/dL (3.4-5.0); Calcium 7.5 mg/dL (8.5-10.1); Potassium 4.3 mmol/L (3.5-5.1)
[2019-09-08 14:40] LABS: % Iron Saturation 30.6 % (20-55)
[2019-09-08 14:42] LABS: BUN/Creatinine Ratio 16.9; Bilirubin, Total 0.2 mg/dL (0.2-1.0); Total Protein 5.7 g/dL (6.4-8.2)
[2019-09-08 14:47] LABS: Ferritin 66.9 ng/mL (10-322); Folate (Folic Acid) 19.71 ng/mL (5.38-24)
== END | disposition home or self-care (01) ==
LOC: LAB 13:33
PROVIDERS: ATTEND Internal Medicine
DX: D50.9 Iron deficiency anemia, unspecified (principal); I11.0 Hypertensive heart disease with heart failure; I50.9 Heart failure, unspecified; I25.10 Atherosclerotic heart disease of native coronary artery without angina pectoris; I48.91 Unspecified atrial fibrillation; E11.9 Type 2 diabetes mellitus without complications; I25.2 Old myocardial infarction; Z87.891 Personal history of nicotine dependence; Z88.1 Allergy status to other antibiotic agents; Z88.0 Allergy status to penicillin; Z88.8 Allergy status to other drugs, medicaments and biological substances; Z90.89 Acquired absence of other organs; Z98.61 Coronary angioplasty status; Z95.0 Presence of cardiac pacemaker
CPT/HCPCS: 36415; 80053; 82607; 82728; 82746; 83540; 83550; 85025

== ENCOUNTER 2019-11-28 09:50 | Inpatient (IN) | payer MEDICARE, MEDICAID ==
[~2019-11-28] VITALS: Ht 188 cm; Wt 95.6 kg
[2019-11-28 10:24] LABS: Basophils # (auto) 0 uL; Basophils % (auto) 0.8 % (0.0-2.0); Eosinophils # (auto) 0.1 uL; Eosinophils % (auto) 2.9 % (0.0-7.0); Hematocrit 38.2 % (41.0-53.0); Hemoglobin 12.9 g/dL (13.5-17.5); Lymphocytes # (auto) 0.8 uL; Lymphocytes % (auto) 17.9 % (10.0-50.0); Mean Corpuscular Hemoglobin 29.8 pg (28.0-32.0); Mean Corpuscular Hgb Conc. 33.8 g/dL (32.0-36.0); Mean Corpuscular Volume 88.2 fL (80.0-100.0); Monocytes # (auto) 0.4 uL; Monocytes % (auto) 8.7 % (0.0-12.0); Neutrophils # (auto) 3.3 uL; Neutrophils % (auto) 69.7 % (37.0-80.0); Nucleated Red Blood Cells % 0.1 %; Platelet Count (auto) 112 10^3/uL (140-450); Red Blood Cells 4.34 10^6/uL (4.5-5.90); Red Cell Distribution Width 12.9 % (11.8-14.3); White Blood Cell 4.7 10^3/uL (4.4-10.8)
[2019-11-28 10:43] LABS: Albumin 3.4 g/dL (3.4-5.0); Anion Gap 6 (5-15); Blood Urea Nitrogen 15 mg/dL (7-18); Carbon Dioxide 23 mmol/L (21-32); Chloride 109 mmol/L (98-107); Glucose 334 mg/dL (74-106); Potassium 4.1 mmol/L (3.5-5.1); Sodium 138 mmol/L (136-145)
[2019-11-28] MEDS ORDERED: MORPHINE SULFATE 4 MG/ML SYR/VIAL IV ONE (10:45)
[2019-11-28] MEDS ORDERED: ONDANSETRON HCL 4 MG/2 ML VIAL IV ONE (10:45)
[2019-11-28 10:47] LABS: Alanine Aminotransferase 32 U/L (16-61); Alkaline Phosphatase 91 U/L (45-117); Aspartate Aminotransferase 22 U/L (15-37); Bilirubin, Total 0.3 mg/dL (0.2-1.0); GFR African American 104 mL/min; GFR Non-African American 86 mL/min; Total Protein 6.7 g/dL (6.4-8.2)
[2019-11-28] MEDS ORDERED: NITROGLYCERIN 0.4 MG SL TAB SL PRN (14:00)
[2019-11-28] MEDS ORDERED: DEXTROSE (50%) 50ML SYRG IV PRN (14:00)
[2019-11-28] MEDS ORDERED: ACETAMINOPHEN 500 MG TAB PO PRN (14:00)
[2019-11-28] MEDS ORDERED: MORPHINE SULF INJ 2 MG/ML SYRINGE 1ML IV PRN (14:00)
[2019-11-28] MEDS: HYDROmorphone HCL 2 MG/ML VL IV PRN ×3 (15:02→23:02)
[2019-11-28] MEDS: ACCU-CHEK COMFORT CURVE STRIP VI SCH ×2 (17:55→21:56)
[2019-11-28] MEDS ORDERED: TAMSULOSIN HYDROCHLORIDE 0.4 MG CAP PO SCH (18:00)
[2019-11-28] MEDS: InsuLIN REG 1unit/0.01ml Soln (100units/ml) SC SCH ×2 (18:05→22:02)
[2019-11-28] MEDS ORDERED: LABETALOL HCL 5 MG/ML 4ML SYRINGE IV PRN (18:45)
--- NOTE | 2019-11-28 19:58 | NUR ---
Telemetry admit from ENIO VILLANUEVA admitted to Telemetry unit. Patient oriented to LUCÍA GROVE, RN primary RN, unit, room, bed, and unit policies regarding patient care and visiting hours. Patient now on continuous telemetry monitoring, tele box #[id number] and telemetry reading on arrival to unit is paced at 62. Patient placed on bedside oxygen, weighed by bed scale and encouraged to call if they need something. All questions and concerns addressed, patient verbalized understanding.
[2019-11-28] MEDS ORDERED: ISOSORBIDE MONONITRATE IR 20 MG TAB PO SCH (22:00)
[2019-11-28] MEDS ORDERED: METOPROLOL TARTRATE 50 MG TAB PO SCH (22:00)
[2019-11-28] MEDS ORDERED: ATORVASTATIN 20 MG TAB PO SCH (22:00)
[2019-11-28 22:14] VITALS: BP 155/85
--- NOTE | 2019-11-28 22:50 | NUR ---
Pain Patient reports 8/10 pain in lower back. Medicated according to orders. Will continue to monitor.
--- NOTE | 2019-11-29 00:30 | NUR ---
Rounds Patient is resting in bed on left side with eyes closed. Respirations are non-labored. No s/s of distress noted. Will continue to monitor for changes.
--- NOTE | 2019-11-29 03:00 | NUR ---
Pain Patient reports 7/10 pain in lower back that woke him from hi sleep. Medicated per MD orders. Will continue to monitor for changes PRN.
[2019-11-29] MEDS: HYDROmorphone HCL 2 MG/ML VL IV PRN ×2 (03:01→07:02)
[2019-11-29 05:06] VITALS: BP 126/74
[2019-11-29] MEDS: InsuLIN REG 1unit/0.01ml Soln (100units/ml) SC SCH (06:14)
[2019-11-29] MEDS: ACCU-CHEK COMFORT CURVE STRIP VI SCH (06:15)
--- NOTE | 2019-11-29 07:20 | NUR ---
OPENING NOTE Report received and assumed care of patient, awake,alert and oriented No S/S of distress/SOB or pain. Instructed on POC and nursing routines ,patient stated "possible going Against Medical due to family emergency" will let RN know,will continue to monitor for changes Q1hr and PRN.
--- NOTE | 2019-11-29 08:00 | NUR ---
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
--- NOTE | 2019-11-29 08:30 | NUR ---
PATIENT SIGNED FORM LEAVING THE HOSPITAL AGAINST MEDICAL ADVICE TREATMENT AND LEFT THE ROOM/UNIT.
--- NOTE | 2019-11-29 08:55 | NUR ---
DR. OLVERA HERE TO SEE PATIENT,INFORMED PATIENT WENT HOME AGAINST MEDICAL ADVICE
[2019-11-29 09:00] VITALS: BP 130/67
[2019-11-29] MEDS ORDERED: AMIODARONE HCL 200 MG TAB PO SCH (10:00)
[2019-11-29] MEDS ORDERED: CLOPIDOGREL BISULFATE 75 MG TAB PO SCH (10:00)
[2019-11-29] MEDS ORDERED: LOSARTAN POTASSIUM 25 MG TAB PO SCH (10:00)
[2019-11-29] MEDS ORDERED: ASPirin-EC 81 mg tab PO SCH (10:00)
[2019-11-29] MEDS ORDERED: PANTOPRAZOLE 40 MG TAB PO SCH (10:00)
== END 2019-11-29 08:30 | disposition left against medical advice (07) | DRG 311 ==
LOC: ER 09:50 → TELE 09:51 → TELE-WESTW 20:02
PROVIDERS: ADMIT Nurse Practitioner Acute Care; ATTEND Family Medicine
DX: I24.9 Acute ischemic heart disease, unspecified (principal); I50.32 Chronic diastolic (congestive) heart failure; I25.10 Atherosclerotic heart disease of native coronary artery without angina pectoris; I11.0 Hypertensive heart disease with heart failure; E11.9 Type 2 diabetes mellitus without complications; J44.9 Chronic obstructive pulmonary disease, unspecified; E78.5 Hyperlipidemia, unspecified; Z53.21 Procedure and treatment not carried out due to patient leaving prior to being seen by health care provider; G89.29 Other chronic pain; M54.5 Low back pain; E78.00 Pure hypercholesterolemia, unspecified; I48.91 Unspecified atrial fibrillation; Z95.5 Presence of coronary angioplasty implant and graft; Z79.01 Long term (current) use of anticoagulants; Z79.02 Long term (current) use of antithrombotics/antiplatelets; Z79.4 Long term (current) use of insulin; Z79.82 Long term (current) use of aspirin; Z79.891 Long term (current) use of opiate analgesic; Z79.899 Other long term (current) drug therapy; Z86.711 Personal history of pulmonary embolism; Z95.0 Presence of cardiac pacemaker; Z90.49 Acquired absence of other specified parts of digestive tract; Z90.89 Acquired absence of other organs; Z87.891 Personal history of nicotine dependence; Z88.0 Allergy status to penicillin; Z88.8 Allergy status to other drugs, medicaments and biological substances; Z88.1 Allergy status to other antibiotic agents; Z83.3 Family history of diabetes mellitus; Z82.49 Family history of ischemic heart disease and other diseases of the circulatory system
CPT/HCPCS: 36415; 71045; 80053; 82962; 83880; 84484; 85025; 93005; 93306; G0378; J1815; J2405

== ENCOUNTER → 2019-12-04 | Outpatient (CLI) | payer MEDICARE ==
[2019-12-04 13:16] LABS: Basophils # (auto) 0 uL; Basophils % (auto) 0.7 % (0.0-2.0); Eosinophils # (auto) 0.3 uL; Hematocrit 39.5 % (41.0-53.0); Lymphocytes # (auto) 1.3 uL; Lymphocytes % (auto) 23.7 % (10.0-50.0); Mean Corpuscular Hgb Conc. 32.8 g/dL (32.0-36.0); Mean Corpuscular Volume 88.3 fL (80.0-100.0); Monocytes # (auto) 0.5 uL; Monocytes % (auto) 9.9 % (0.0-12.0); Neutrophils # (auto) 3.4 uL; Neutrophils % (auto) 60.7 % (37.0-80.0); Platelet Count (auto) 116 10^3/uL (140-450); Red Blood Cells 4.48 10^6/uL (4.5-5.90); Red Cell Distribution Width 13.3 % (11.8-14.3); White Blood Cell 5.5 10^3/uL (4.4-10.8)
[2019-12-04 13:31] LABS: % Iron Saturation 23.7 % (20-55)
[2019-12-04 13:32] LABS: Albumin 3.5 g/dL (3.4-5.0); BUN/Creatinine Ratio 15.1; Calcium 7.6 mg/dL (8.5-10.1); Potassium 4.1 mmol/L (3.5-5.1)
[2019-12-04 13:35] LABS: Bilirubin, Total 0.4 mg/dL (0.2-1.0); Total Protein 6.9 g/dL (6.4-8.2)
[2019-12-04 13:40] LABS: Ferritin 19.2 ng/mL (10-322)
[2019-12-04 13:50] LABS: Folate (Folic Acid) > 24.00 ng/mL (5.38-24)
== END | disposition home or self-care (01) ==
LOC: LAB 12:57
PROVIDERS: ATTEND Internal Medicine
DX: D50.9 Iron deficiency anemia, unspecified (principal)
CPT/HCPCS: 36415; 80053; 82607; 82728; 82746; 83540; 83550; 85025